=== PATIENT | male | born 1995 | race Two or more races ===

== ENCOUNTER 2024-11-06 16:42 | Emergency (ER) | payer MEDICAID, SELFPAY ==
[2024-11-06 16:52] VITALS: PULSE 129; O2SAT 98
--- NOTE | 2024-11-06 16:56 | EKG_ITS ---
[facility] Test Date: 2024-11-06 Pat Name: DANELLE AQUINO Department: Room: - Gender: Male Waiter: : 1995 Requested By: ED Temporary Provider Order Number: [id number] Reading MD: ED Temporary Provider Measurements Intervals Madeline Rate: 117 P: 71 NH: 136 QRS: 88 QRSD: 84 T: 56 QT: 302 QTc: 422 Interpretive Statements SINUS TACHYCARDIA ABNORMAL RHYTHM ECG Compared to ECG 08/18/2022 18:19:03 No significant changes /store/S0/[id number]/ecg/[id number].pdf
[2024-11-06 17:26] VITALS: BP 128/86; PULSE 89; RESP 17; TEMP 36.9; O2SAT 97; BMI 27.3
--- NOTE | 2024-11-06 17:35 | XR_ITS ---
Examination: PA lateral chest 2 views TECHNIQUE: Upright PA and lateral chest 2 views Date and time: November 06, 2024, 1808 hours, comparison August 18, 2022 INDICATIONS: Chest pain beginning today. FINDINGS: Normal heart size. Lungs are clear. Osseous structures are intact. IMPRESSION: No active disease.
--- NOTE | 2024-11-06 17:36 | PD.EDRME ---
Rapid Medical Screening Exam RME Arrival date/time: 11/06/24 16:42 Chief Complaint: Arrhythmia/Palpitations Time Seen by Provider: 11/06/24 17:30 Vital signs: Vital Signs Temperature 98.4 F 11/06/24 17:26 Pulse Rate 89 11/06/24 17:26 Respiratory Rate 17 11/06/24 17:26 Blood Pressure 128/86 H 11/06/24 17:26 Pulse Oximetry (%) 97 11/06/24 17:26 Oxygen Delivery Method Room Air 11/06/24 17:26 Vital signs reviewed by provider: Yes RME Narrative: Patient is a 29-year-old male with medical history notable for schizophrenia that is in the emergency department brought in by EMS and his mom with concerns for palpitations and hallucinations. Per the patient's mother, the patient smoked marijuana today and after that drank 3 energy drinks, after that started hallucinating, and complaining of chest pain and palpitations. Denies fevers chills nausea vomiting abdominal pain dysuria hematuria diarrhea. Denies drinking alcohol today. Patient has a history of schizophrenia, is compliant with his medications however does not know the name of his medication.
--- NOTE | 2024-11-06 18:21 | PD.EDARRY ---
ED Arrhythmia Palp. RME/HPI General Chief Complaint: Arrhythmia/Palpitations Stated Complaint: DRUG INGESTION Time Seen by Provider: 11/06/24 17:30 Arrival date/time: 11/06/24 16:42 RME / HPI RME / HPI narrative: Patient is a 29-year-old male with medical history notable for schizophrenia that is in the emergency department brought in by EMS and his mom with concerns for palpitations and hallucinations. Per the patient's mother, the patient smoked marijuana today and after DR. MENDIETA MAIN ED EVALUATION: 29 y/o male with Sdchizophrenia and Depression BIBA from home c/o palpitations and hallucinations s/p smoking marijuana and drinking 3 energy drinks x 1 day. Patient admits to alcohol consumption last night. He takes Abilify 15 mg. No other concerns or complaints expressed at this time. Related Data Previous Rx's ?Medication ?Instructions ?Recorded aripiprazole 15 mg tablet (Abilify) 15 mg PO QDAY #30 tabs 11/06/24 Allergies Allergy/AdvReac Type Severity Reaction Status Date / Time No Known Allergies Allergy Verified 11/06/24 16:56 Review of Systems Review of Systems Systems Reviewed: All systems reviewed, normal except as documented Past Medical History Past Medical History PSYCHO/SOCIAL: Positive Schizophrenia and Depression Social History SMOKING STATUS: Current some day smoker SUBSTANCE USE: marijuana SUBSTANCE LAST USED: just [employer] ALCOHOL: Current ED Exam Narrative Physical exam: Generally patient is alert with a flat affect, head is normocephalic atraumatic, eyes pupils equal round reactive to light, neck shows no nuchal rigidity, heart slightly tachycardic rate with regular rhythm, lungs clear to auscultation equal bilaterally, abdomen soft bowel sounds present on send nontender, neurologic exam no focal motor or sensory deficits cranial nerves II through XII grossly intact, psychological exam flat affect without suicidal or homicidal ideation Course Quality Measures none Orders Category Date Time Status EKG (ED ONLY) *Do not use* NOW Care 11/06/24 16:56 Completed CXR2 [XR chest 2V] Stat Exams 11/06/24 17:35 Completed EKG (ED Only) Stat Exams 11/06/24 16:56 Draft Acetaminophen Stat Lab 11/06/24 17:35 Ordered CBC Stat Lab 11/06/24 17:35 Ordered CMP [Comprehensive Metabolic Panel] Stat Lab 11/06/24 17:35 Ordered Drug Screen,Urine Stat Lab 11/06/24 17:35 Ordered Salicylate Stat Lab 11/06/24 17:35 Ordered T4 (Thyroxine) Stat Lab 11/06/24 17:35 Ordered Thyroid Stimulating Hormone Stat Lab 11/06/24 17:35 Ordered Troponin I Stat Lab 11/06/24 17:35 Ordered LORazepam [Ativan] Med 11/06/24 17:31 Discontinued 0.5 mg PO X1 ONE OLANZapine [ZyPREXA] Med 11/06/24 17:34 Discontinued 2.5 mg PO X1 ONE OLANZapine [ZyPREXA] Med 11/06/24 17:35 Discontinued 5 mg PO X1 ONE Vital Signs Vital signs: Vital Signs Temperature 98.4 F 11/06/24 17:26 Pulse Rate 89 11/06/24 17:26 Respiratory Rate 17 11/06/24 17:26 Blood Pressure 128/86 H 11/06/24 17:26 Pulse Oximetry (%) 97 11/06/24 17:26 Oxygen Delivery Method Room Air 11/06/24 17:26 Arrhythmia/Palpitations MDM Narrative MDM Narrative:: Scribe Attestation: I, Tessy Nuñez, am scribing for and in the presence of Dr. Mendieta. Provider Notation: Although this document has been carefully reviewed, there may still be some phonetic and other typographical errors. These errors are purely grammatical due to imperfections in the software program and should not be construed in any way to? compromise the substance of the patient's medical care during this visit. Interpreted all labs. Urinary tox screen was negative. Alcohol level was 156. Patient drank 3 high caffeinated energy drinks today. That is most likely accounting for the tachycardia. He would like his Abilify medication refilled which he states he is compliant with. That will be refilled. Patient will be discharged in stable condition. He was encouraged to avoid alcohol. Patient data External records reviewed:: [facility] previous records (Reviewed prior ED records from 08/18/22. Patient was seen for Alcohol intoxication.) and EMS form Clinical information provided by:: patient, EMS and parent (Mother) Social determinants that could affect healthcare access:: substance use (marijuana, alcohol) Patient has the following chronic illnesses:: Schizophrenia, Depression How is presenting disease/condition affected by chronic disease/condition?: exacerbated by Evaluation data The following diagnostics were reviewed and interpreted by me:: lab results, radiology exam(s) and EKG tracing(s) Lab and/or radiology exams considered but not ordered:: None Interpretation Summary: RADIOLOGY FINDINGS: Normal heart size. Lungs are clear. Osseous structures are intact. IMPRESSION: No active disease. Medications / Prescriptions Medications or Prescriptions considered but not ordered:: Nne Medication administrations:: Medication Administration History Discontinued Medications Lorazepam (Lorazepam 0.5 Mg Tablet) 0.5 mg PO X1 ONE Stop: 11/06/24 17:32 Last Admin: 11/06/24 17:47 Dose: Not Given Documented By: EF Non-Admin Reason: Cancelled by Provider Olanzapine (Olanzapine 2.5 Mg Tablet) 2.5 mg PO X1 ONE Stop: 11/06/24 17:35 Olanzapine (Olanzapine 5 Mg Tablet) 5 mg PO X1 ONE Stop: 11/06/24 17:36 Last Admin: 11/06/24 18:02 Dose: 5 mg Documented By: EF Consultations Consultation(s) initiated? (list below): No Diagnosis Differential diagnosis arrhythmia/palpitations: palpitations, anxiety, sinus tachycardia, artial fibrillation, artial flutter, ventricular premature beats, supraventricular tachycardia, ventricular tachycardia and WPW Most likely diagnosis given after review of the tests above:: None Admission Indicated Admission indicated?: not indicated Explain why admission is indicated or not indicated:: Patient does not meet admission criteria. Admission Request Was there a request for admission?: No Disposition Plan Disposition Plan: Discharge Discharge Attestation Discharge Attestation: The patient and all family members were given an opportunity to ask questions and understood the discharge instructions. Discharge instructions specifically effects, indications for sooner follow up or return to the emergency department, and the expected course of current diagnosis. Patient condition: Stable Discharge Plan Plan Patient Disposition: HOME (Self Care) Prescriptions/Referrals Prescriptions/Med Rec: New aripiprazole [Abilify] 15 mg tablet 15 mg PO QDAY Qty: 30 0RF Referrals: No Primary/Family,Physician [Primary Care Provider] - In 1 week Problem List Clinical Impression: Palpitations, Alcohol use, Hx of schizophrenia Patient/Caregiver Discharge Instructions Education Materials: ED Palpitations Additional Instructions: Avoid energy drinks and alcohol in the future. Take the Abilify as prescribed. Print Language: [place] Stand Alone Forms: Janiya Award Info., Patient Portal Info Letter
[2024-11-06 18:36] LABS: Basophils # (Auto) 0.1 Thou/mm3 (0.0-0.2); Basophils % (Auto) 1 % (0-2.5); Eosinophils # (Auto) 0.1 Thou/mm3 (0.0-0.5); Eosinophils % (Auto) 2 % (0-10); Hematocrit 39.8 % (41.0-53.0); Hemoglobin 13.5 g/dL (13.5-16.0); Immature Granulocytes Auto 0.02 Thou/mm3 (0.00-0.00); Lymphocytes # (Auto) 0.9 Thou/mm3 (1.0-4.8); Lymphocytes % (Auto) 11 % (10-50); Mean Corpuscular HGB Conc 33.9 g/dl (31.0-37.0); Mean Corpuscular Hemoglobin 30.7 pg (25.0-35.0); Mean Corpuscular Volume 91 fL (80-100); Monocytes # (Auto) 0.5 Thou/mm3 (0.0-0.8); Monocytes % (Auto) 5 % (0-12); Neutrophils # (Auto) 7.1 Thou/mm3 (1.8-7.7); Neutrophils % (Auto) 81 % (37-80); Nucleated Red Blood Cell # 0.00 Thou/mm3 (0.00-0.00); Nucleated Red Blood Cell % 0 /100 WBC (0); Platelet Count 183 Thou/mm3 (140-440); RDW Standard Deviation 42.0 fL (35.1-43.9); Red Blood Count 4.40 Miln/mm3 (4.50-5.90); White Blood Count 8.7 Thou/mm3 (3.8-10.6)
--- NOTE | 2024-11-06 18:37 | PD.EDADDENDU ---
Emergency Room Addendum Addendum Narrative: EKG done at 5:22 PM shows sinus tachycardia at a rate of 117 with normal intervals. No ischemic changes.
[2024-11-06 18:41] VITALS: BP 135/72; PULSE 89; RESP 16; O2SAT 98
[2024-11-06 18:56] LABS: Acetaminophen < 2.0 mcg/mL (10.0-20.0); Alanine Aminotransferase 14 U/L (10-49); Albumin, Serum 4.4 gm/dL (3.5-5.0); Albumin/Globulin Ratio 1.8 (1.2-2.2); Alkaline Phosphatase 82 U/L (46-116); Anion Gap 8 (7-16); Aspartate Amino Transferase 17 U/L (0-34); BUN/Creatinine Ratio 7 Ratio (12-20); Bilirubin,Total 0.4 mg/dL (0.3-1.2); Blood Urea Nitrogen 9 mg/dL (9-23); Calcium 9.3 mg/dL (8.3-10.6); Calcium (Corrected) 9.3 mg/dL (8.5-10.1); Carbon Dioxide 26.0 mMol/L (20.0-31.0); Chloride 109 mMol/L (98-107); Creatinine (Component) 1.3 mg/dL (0.6-1.3); Estimated Creatinine Clearance 81.8 mL/min (>60); Globulin 2.4 gm/dL (2.3-3.5); Glucose 77 mg/dL (74-106); Osmolality,Calculated 282 (275-295); Potassium 3.8 mMol/L (3.4-5.1); Salicylate < 3.0 mg/dL; Sodium 143 mMol/L (136-145); Thyroid Stimulating Hormone 0.30 uIU/mL (0.55-4.78); Total Protein 6.8 gm/dL (5.7-8.2); Troponin I < 0.002 ng/mL (0.0-0.045); eGFR > 60 See Note
[2024-11-06 21:16] LABS: Amphetamine/Methamp Scrn,U Negative (Negative); Barbiturate Screen,Urine Negative (Negative); Benzodiazepines Screen,Urine Negative (Negative); Benzoylecgonine Screen, Ur Negative (Negative); Fentanyl Screen,Urine Negative (Negative); Opiate Screen,Urine Negative (Negative); THC Screen,Urine Positive (Negative)
[2024-11-06 21:23] LABS: T4 (Thyroxine) 8.5 mcg/dL (4.5-10.9)
== END 2024-11-06 18:42 | disposition home or self-care (01) ==
PROVIDERS: Emergency Medicine; Emergency Provider Emergency Medicine
DX: R00.2 Palpitations (principal); F10.90 Alcohol use, unspecified, uncomplicated; F20.9 Schizophrenia, unspecified; F32.A Depression, unspecified; R00.0 Tachycardia, unspecified
CPT/HCPCS: 36415; 71046; 80053; 80307; 80329; 84436; 84443; 84484; 85025; 93005; 99283; A9270; G0480